=== PATIENT | female | born 1955 | race Two or more races ===

== ENCOUNTER 2018-05-29 10:11 | Emergency (ER) | payer OTHER ==
[~2018-05-29] VITALS: Ht 154.9 cm; Wt 81.6 kg
[2018-05-29 11:31] LABS: Basophils # (auto) 0 uL; Basophils % (auto) 1.1 % (0.0-2.0); Eosinophils # (auto) 0.1 uL; Eosinophils % (auto) 2.1 % (0.0-7.0); Hematocrit 42.7 % (36.0-46.0); Hemoglobin 14.4 g/dL (12.2-16.2); Lymphocytes # (auto) 1.2 uL; Lymphocytes % (auto) 25.1 % (10.0-50.0); Mean Corpuscular Hemoglobin 31.6 pg (28.0-32.0); Mean Corpuscular Hgb Conc. 33.7 g/dL (32.0-36.0); Mean Corpuscular Volume 93.8 fL (80.0-100.0); Monocytes # (auto) 0.4 uL; Monocytes % (auto) 8.7 % (0.0-12.0); Neutrophils # (auto) 2.9 uL; Platelet Count (auto) 238 10^3/uL (140-450); Red Blood Cells 4.55 10^6/uL (4.0-5.20); Red Cell Distribution Width 14.8 % (11.8-14.3); White Blood Cell 4.6 10^3/uL (4.4-10.8)
[2018-05-29 11:43] LABS: BUN/Creatinine Ratio 14.1; Potassium 3.8 mmol/L (3.5-5.1)
[2018-05-29 11:44] LABS: Bilirubin, Total 0.8 mg/dL (0.2-1.0)
[2018-05-29 16:20] VITALS: BP 142/85
== END 2018-05-29 16:41 | disposition home or self-care (01) ==
LOC: ER 10:11
DX: G45.4 Transient global amnesia (principal); N39.0 Urinary tract infection, site not specified; E78.5 Hyperlipidemia, unspecified; Z88.6 Allergy status to analgesic agent
CPT/HCPCS: 36415; 70450; 71046; 80053; 83735; 84443; 85025; 93005